=== PATIENT | female | born 1980 ===

== ENCOUNTER → 2017-07-04 | Outpatient (CLI) | payer OTHER ==
[2017-07-04 18:36] LABS: URINE APPEARANCE CLEAR (CLEAR); URINE BILIRUBIN NEG (NEG); URINE COLOR YELLOW; URINE NITRITE NEG (NEG); URINE PH >= 9.0 (4.5-7.5); URINE SPECIFIC GRAVITY 1.007 (1.000-1.030); UROBILINOGEN NEG (NEG)
[2017-07-04 18:43] LABS: MANUAL MICROSCOPIC REQUIRED? NO; REVIEW REQ? NO
[2017-07-04 18:48] LABS: BENZODIAZEPINE, URINE NEG (NEG); COCAINE,URINE NEG (NEG); PHENCYCLIDINE, URINE NEG (NEG)
== END | disposition home or self-care (01) ==
LOC: C.LABSPEC 17:25
PROVIDERS: ATTEND Obstetrics & Gynecology
DX: Z34.83 Encounter for supervision of other normal pregnancy, third trimester (principal)

== ENCOUNTER 2017-08-07 06:26 | Inpatient (IN) | payer OTHER ==
[~2017-08-07] VITALS: Ht 172.7 cm; Wt 70.8 kg
[2017-08-07] MEDS ORDERED: VNTHFA/IN INH (06:57)
[2017-08-07] MEDS ORDERED: PRENTAB26 PO (06:57)
[2017-08-07 06:59] VITALS: Ht 172.7 cm; Wt 70.8 kg
[2017-08-07] MEDS ORDERED: LACTATED RINGER'S 1000ML 1,000 ML IV SCH (08:01)
[2017-08-07] MEDS ORDERED: LACTATED RINGER'S 1000ML 500 ML IV PRN ×2 (08:01→09:59)
[2017-08-07] MEDS ORDERED: LACTATED RINGER'S 1000ML 1,000 ML IV PRN (08:01)
[2017-08-07] MEDS ORDERED: OXYTOCIN 30 UNITS/500ML NSS IV PRN ×2 (08:15→14:45)
[2017-08-07 08:26] LABS: BENZODIAZEPINE, URINE NEG (NEG); COCAINE,URINE NEG (NEG); PHENCYCLIDINE, URINE NEG (NEG)
[2017-08-07] MEDS ORDERED: FENTANYL 2MCG/ML ROPIV 1.25MG/ML 100ML BAG EPI ONE (08:47)
[2017-08-07] MEDS ORDERED: BUPIVACAINE 0.25% 30 ML VIAL ONE (08:47)
[2017-08-07] MEDS ORDERED: EpHEDrine SULFATE INJ 50 MG/ML AMP ONE (08:47)
[2017-08-07] MEDS ORDERED: FENTANYL CITRATE INJ 50 MCG/1 ML 2 ML VIAL ONE (08:47)
[2017-08-07 09:01] LABS: HEMATOCRIT 35.9 % (37-47); MEAN CELL VOLUME 100.6 fL (80-100); MEAN CORPUSCULAR HEMOGLOBIN 33.9 pg (25-34); MEAN CORPUSCULAR HGB CONC 33.7 g/dl (32-36); MEAN PLATELET VOLUME 12.8 fL (7.4-10.4); PLATELET COUNT 326 K/uL (130-400); RED BLOOD COUNT 3.57 M/uL (4.2-5.4); WHITE BLOOD COUNT 15.11 K/uL (4.8-10.8)
[2017-08-07] MEDS ORDERED: NALOXONE HCL INJ 1 MG in SODIUM CHLORIDE 0.9% 1000ML 1,000 ML IV PRN ×4 (09:59)
[2017-08-07] MEDS ORDERED: NALBUPHINE HCL INJ 10 MG/ML AMP IV PRN (10:00)
[2017-08-07] MEDS ORDERED: FENTANYL 2MCG/ML ROPIV 1.25MG/ML 100ML BAG EPI PRN (10:00)
[2017-08-07] MEDS ORDERED: EpHEDrine SULFATE INJ 50 MG/ML AMP IV PRN (10:00)
[2017-08-07] MEDS ORDERED: PROMETHAZINE HCL INJ 25 MG in SODIUM CHLORIDE 0.9% 50ML 50 ML IV PRN (10:00)
[2017-08-07] MEDS ORDERED: ONDANSETRON INJ 2 MG/ML 2 ML VIAL IV PRN (10:00)
[2017-08-07] MEDS ORDERED: DiphenhydrAMINE HCL 50 MG/ML VIAL IV PRN (10:00)
[2017-08-07] MEDS ORDERED: NALOXONE HCL INJ 0.4 MG/1 ML VIAL/CARP IV PRN (10:00)
[2017-08-07] MEDS ORDERED: LANOLIN OINT EXT PRN ×2 (14:45)
[2017-08-07] MEDS ORDERED: OXYCODONE/ACETAMINOPHEN 5-325 TAB PO PRN (14:45)
[2017-08-07] MEDS ORDERED: ACETAMINOPHEN/CODEINE 300/30MG TAB PO PRN ×2 (14:45)
[2017-08-07] MEDS ORDERED: HYDROCORTISONE ACETATE 25 MG SUPP PR PRN (14:45)
[2017-08-07] MEDS ORDERED: BENZOCAINE 20% AER SPR 82.5 GM CAN EXT PRN (14:45)
[2017-08-07] MEDS ORDERED: ACETAMINOPHEN 325 MG TAB PO PRN (14:45)
[2017-08-07] MEDS ORDERED: SUPERCREAM 0.870 % 15GM JAR EXT PRN (14:45)
--- NOTE | 2017-08-07 15:16 | DELIVERY SUMMARY ---
DATE OF OPERATION: 08/07/2017 DESCRIPTION OF LABOR AND DELIVERY: Maria Dolores presented in labor and delivery for Dr. Biggs. She arrived and changed her cervix to 4 cm per her exam. She was admitted. At that time, AROM was performed with minimal fluid obtained vaginally and the patient also required Pitocin augmentation. complicated by drug use and she was also a late transfer of care from her prior practice. heart rate was category 1. She progressed to fully dilated and then delivered a baby over a first degree tear and left occiput anterior. Mouth and nares suctioned. No nuchal cord. Fluid was clear. No excessive force used. Gentle traction. Live vigorous male infant. Cord clamped and cut. Cord gases obtained. Cord blood obtained. Placenta removed with gentle traction and then first degree tear repaired with 3-0 Vicryl. IV Pitocin started. Sponge and instrument counts correct. Estimated blood loss 300 mL. I attest to the content of the Intraoperative Record and any orders documented therein. Any exception s are noted below.
--- NOTE | 2017-08-07 15:17 | Anesthesia Procedure Note ---
Anesthesia Epidural Removal Nt Date & Time Aug 07, 2017 at 15:17 Vital Signs Pain Intensity: 0.0 Notes Mental Status: alert / awake / arousable, participated in evaluation Nausea / Vomiting: adequately controlled Pain: adequately controlled Airway Patency, RR, SpO2: stable & adequate BP & HR: stable & adequate Hydration State: stable & adequate Neuraxial Anesthesia: was administered Anesthetic Complications: no major complications apparent, pt satisfied with anesthetic care Epidural: removed without complications, with tip intact
[2017-08-07 16:55] VITALS: BP 143/91; PULSE 109; TEMP 36.9; O2SAT 92; O2SAT 95
[2017-08-07] MEDS: IBUPROFEN 600 MG TAB PO PRN ×2 (17:18→23:39)
[2017-08-07] MEDS ORDERED: NURSING VERBAL MED ORDER ONE (19:30)
[2017-08-07] MEDS: DOCUSATE SODIUM 100 MG CAP PO SCH (19:30)
[2017-08-07 19:45] VITALS: BP 154/93; PULSE 92; TEMP 36.6; O2SAT 94
[2017-08-07] MEDS: NICOTINE 21 MG/24 HR TDSY EXT SCH (20:50)
[2017-08-07 22:10] VITALS: BP 155/95; PULSE 93; O2SAT 94
[2017-08-07 23:40] VITALS: BP 148/85; PULSE 90; TEMP 36.6; O2SAT 94
[2017-08-08] VITALS (13 sets, daily range): BP systolic 112–161; BP diastolic 77–98; PULSE 84–110; TEMP 36.5–36.9; O2SAT 91–96
[2017-08-08 06:51] LABS: HEMATOCRIT 32.8 % (37-47)
--- NOTE | 2017-08-08 07:33 | Progress Note ---
Subjective Aug 08, 2017. Subjective conversation w/ patient, physical exam, chart review, lab review Ambulation: ambulating normally Voiding: no voiding problems Diet Tolerance: NPO (pt undergoing tubal today) Lochia: Moderate Feeding Type: Breast Feeding Pain: controlled Review of Systems Respiratory: No shortness of breath Cardiac: No chest pain Abdomen: No nausea, No vomiting Female : No dysuria Objective Vital Signs Date Time Temp Pulse Resp B/P (MAP) Pulse Ox O2 Delivery O2 Flow Rate FiO2 08/08/17 04:05 36.6 92 18 147/96 (113) 93 Room Air 08/07/17 23:40 36.6 90 18 148/85 (106) 94 Room Air 08/07/17 23:40 94 Room Air 08/07/17 22:10 93 155/95 (115) 94 08/07/17 19:45 36.6 92 20 154/93 (113) 94 Room Air 08/07/17 16:55 95 Room Air 08/07/17 16:55 36.9 109 20 143/91 (108) 92 Room Air Physical Exam General Appearance: WELL-APPEARING, WD/WN, NO APPARENT DISTRESS Respiratory/Chest: lungs clear, normal breath sounds, no respiratory distress Cardiovascular: regular rate, rhythm, no gallop Abdomen: normal bowel sounds, soft Fundus: Firm, Tender (appropriately tender), Relation to Umbilicus (1 below U) Extremities: non-tender, normal inspection Laboratory Results Last 24 Hours Test 08/07/17 08:28 08/08/17 06:29 White Blood Count 15.11 K/uL Red Blood Count 3.57 M/uL Hemoglobin 12.1 g/dL 10.7 g/dL Hematocrit 35.9 % 32.8 % Mean Corpuscular Volume 100.6 fL Mean Corpuscular Hemoglobin 33.9 pg Mean Corpuscular Hemoglobin Concent 33.7 g/dl RDW Standard Deviation 53.5 fL RDW Coefficient of Variation 14.6 % Platelet Count 326 K/uL Mean Platelet Volume 12.8 fL Nucleated RBC Absolute Count (auto) 0.08 K/uL Nucleated Red Blood Cells % 0.5 % Assessment and Plan Post- Day#: 1 Continue Routine Care: Vital signs reviewed and wnl with the exception of hypertension (147/96). Hgb reviewed 12.1, (10.7 today). Blood type O +, GBS -, RI. Pt doing well clinically. Pt denies headaches or change in vision. Encourage ambulation, . Resume regular diet. Control pain with motrin/tylenol. Monitor lochia. Continue routine post care. Pt to undergo tubal today. LY DUMONT FMR PGY 1. Resident Physician Supervision Note: I interviewed and examined the patient. Discussed with Dr. Dumont and agree with findings and plan as documented in the note. Any exceptions or clarifications are listed here: [None] Documented By: Gonzalez Hopper Resident Tracking Resident Involvement: Resident Care Provided Care Provided: OB Delivery
--- NOTE | 2017-08-08 07:38 | HISTORY & PHYSICAL EXAMINATION ---
DATE OF ADMISSION: 08/07/2017 HISTORY OF PRESENT ILLNESS: Maria Dolores anneented in labor and delivery in active labor at 40 weeks and 6 days on 08/07/2017 and delivered a baby vaginally without difficulty. Her was complicated by some marijuana use. The patient was also a late transfer of care with us. She had signed a consent for tubal ligation which she wished after delivery the day after, and discussed the case with Dr. Morales and he agreed to do this. PAST MEDICAL HISTORY: As mentioned drug use, otherwise healthy. MEDICATIONS: None. DRUG ALLERGIES: None. PAST SURGICAL HISTORY: No major surgeries. SOCIAL HISTORY: Noncontributory. FAMILY HISTORY: Noncontributory. REVIEW OF SYSTEMS: Negative. PHYSICAL EXAMINATION: VITAL SIGNS: Stable. She is afebrile. CHEST: Clear. CARDIOVASCULAR: Normal rate and rhythm. No audible murmur. ABDOMEN: Benign. Her uterus is below umbilicus at this stage, firm, nontender, bleeding is minimal. EXTREMITIES: Negative. IMPRESSION AND PLAN: The patient wishes a tubal ligation. I did review risks with her including risks of bleeding, infection, injury to bowel, bladder, ureter, vessels, deep vein thrombosis, pulmonary embolus, hernia and failure of the procedure. Also, discussed regret and patient consented for a laparoscopic tubal ligation with Dr. Morales on 08/08/2017.
[2017-08-08] MEDS: PRENATAL VITAMIN TAB PO SCH (08:00)
[2017-08-08] MEDS: DOCUSATE SODIUM 100 MG CAP PO SCH ×2 (08:00→19:54)
[2017-08-08] MEDS ORDERED: DIPHTHERIA/TETANUS/PERTUSSIS 0.5 ML SYR/VIAL IM. ONE (09:00)
[2017-08-08] MEDS ORDERED: PROPOFOL IV EMULSION 10 MG/ML 20 ML VIAL IV ONE ×2 (11:34→12:59)
[2017-08-08] MEDS ORDERED: MIDAZOLAM HCL 1 MG/ML 2ML VIAL ONE (11:34)
[2017-08-08] MEDS ORDERED: LIDOCAINE HCL 2% 2 ML VIAL (20MG/ML) ONE (11:34)
[2017-08-08] MEDS ORDERED: DEXAMETHASONE SOD INJ 4 MG/ML VIAL ONE (11:34)
[2017-08-08] MEDS ORDERED: ONDANSETRON INJ 2 MG/ML 2 ML VIAL ONE (11:34)
[2017-08-08] MEDS ORDERED: FENTANYL CITRATE INJ 50 MCG/1 ML 2 ML VIAL ONE ×2 (11:34→12:14)
[2017-08-08] MEDS ORDERED: KETAMINE HCL INJ 50 MG/ML 10 ML VIAL ONE (12:15)
[2017-08-08] MEDS ORDERED: SODIUM CHLORIDE 0.9% 1000ML 1,000 ML IV SCH (12:32)
--- NOTE | 2017-08-08 12:36 | [facility] Post Operative Brief Note ---
Immediate Operative Summary Operative Date Aug 08, 2017. Pre-Operative Diagnosis Request for Permanent Sterilization Post-Operative Diagnosis Same as preoperative Procedure(s) Performed Bilateral Tubal Ligation Surgeon Dr. Morales Belt Weaver Surgeon(s) Dr. Dumont Estimated Blood Loss 3ml Findings Apparent previous right partial salpingectomy, distal end of tube not seen on Right, Normal left tube, bilateral tubal ligation Fluids (cc crystalloids) 800 Specimens PERMANENT: A.) Right Fallopian Tube B.) Left Fallopian Tube Drains None Anesthesia General Disposition Recovery Room / PACU
[2017-08-08] MEDS ORDERED: ONDANSETRON INJ 2 MG/ML 2 ML VIAL IV PRN ×2 (12:45)
[2017-08-08] MEDS ORDERED: EpHEDrine SULFATE INJ 50 MG/ML AMP IV PRN (12:45)
[2017-08-08] MEDS ORDERED: FLUMAZENIL 0.1 MG/1 ML 10 ML VIAL IV PRN (12:45)
[2017-08-08] MEDS ORDERED: NALOXONE HCL 0.4 MG/1 ML VIAL/CARP IV PRN (12:45)
[2017-08-08] MEDS ORDERED: HYDROmorphone INJ 1 MG/ML SYR IV PRN (12:45)
[2017-08-08] MEDS ORDERED: ATROPINE SULFATE 0.1 MG/ML 5ML SYR IV PRN (12:45)
[2017-08-08] MEDS ORDERED: PROMETHAZINE HCL INJ 12.5 MG in SODIUM CHLORIDE 0.9% 50ML 50 ML IV PRN (12:45)
--- NOTE | 2017-08-08 12:54 | OPERATIVE REPORT ---
DATE OF OPERATION: 08/08/2017 PREOPERATIVE DIAGNOSIS: Desired permanent surgical sterilization. POSTOPERATIVE DIAGNOSIS: Same. PROCEDURE PERFORMED: tubal ligation. SURGEON: Dr. Morales. CORPORATE COMPLIANCE MANAGER: Dr. Dumont. ANESTHESIA: General. FINDINGS: Exploration of the abdomen showed a normal-appearing left tube followed to the fimbriated end. The right fallopian tube could only be followed one-half way with adhesions of the small bowel to the proximal tube. Adhesiolysis performed. Tube could not be followed to the end, but a segment of the fallopian tube was elevated and excised. PROCEDURE IN DETAIL: The patient was taken to the operating room and after general anesthesia, was placed in dorsolithotomy position and draped and prepped in the usual fashion. A subumbilical incision through previous surgical scar was made. Underlying subcutaneous tissue was dissected down to the ventral abdominal fascia, which was nicked and opened in a horizontal manner. The peritoneal cavity was entered. The right fallopian tube was isolated and an attempt to following the tube to the distal end was made. Approximately retirement distal, the tube could no longer be found. There were adhesions of the small bowel to that tube, which were taken down with sharp dissection. A segment of the right tube though was elevated, doubly ligated with 0 plain suture, cut and removed from the field. In the similar fashion, left fallopian tube was isolated, followed to the fimbriated end; a segment of which was elevated, doubly ligated with 0 plain suture, cut and removed from the field. Hemostasis was present. Sponge and needle count was correct. The fascia was closed with a running 0 Vicryl suture. The skin incision was closed with interrupted 5-0 Monocryl sutures. Sterile dressing was applied and the patient was taken to the recovery room in satisfactory condition. I attest to the content of the Intraoperative Record and any orders documented therein. Any exception s are noted below.
[2017-08-08] MEDS ORDERED: OXYC-57 PO (13:43)
--- NOTE | 2017-08-08 13:44 | Anesthesiology Progress Note ---
Anesthesia Post Op Note Date & Time Aug 08, 2017 at 13:43 Vital Signs Pain Intensity: 1 Vital Signs Past 12 Hours Date Time Temp Pulse Resp B/P (MAP) Pulse Ox O2 Delivery O2 Flow Rate FiO2 08/08/17 12:50 36.5 99 16 132/89 94 Mask 10 08/08/17 11:20 36.5 90 16 161/98 (119) Room Air 08/08/17 08:00 36.7 84 18 125/84 (98) Room Air 08/08/17 07:20 Room Air 08/08/17 04:05 36.6 92 18 147/96 (113) 93 Room Air Notes Mental Status: alert / awake / arousable, participated in evaluation Pt Amnestic to Procedure: Yes Nausea / Vomiting: adequately controlled Pain: adequately controlled Airway Patency, RR, SpO2: stable & adequate BP & HR: stable & adequate Hydration State: stable & adequate Anesthetic Complications: no major complications apparent
[2017-08-08] MEDS: IBUPROFEN 600 MG TAB PO PRN ×2 (15:28→19:51)
[2017-08-08] MEDS: OXYCODONE/ACETAMINOPHEN 5-325 TAB PO PRN ×3 (15:28→21:31)
--- NOTE | 2017-08-08 16:47 | Discharge Instructions ---
Discharge Instructions Date of Service Aug 08, 2017. Admission Reason for Admission: Normal Labor And Delivery Discharge Discharge Diagnosis / Problem: Spontaneous vaginal delivery Discharge Goals Goal(s): Routine recovery after delivery Medications Continue Dispensed Medications: supercream, dermaplast, tucks, lansinoh Activity Recommendations Activity Limitations: per Instructions/Follow-up section . Instructions / Follow-Up Instructions / Follow-Up ACTIVITY RECOMMENDATIONS: * Gradual return to full activity over the next 2-3 weeks. * No lifting - nothing heavier than baby over the next 2-3 weeks. * Do not engage in vigorous exercise, sexual activity or sports until cleared by your physician. * Do not drive or operate any motorized equipment until cleared by your physician. * You may shower/bathe daily. MEDICATIONS: For discomfort or pain, you may use Acetaminophen (Tylenol), Ibuprofen (Advil), or Naproxen (Aleve) following the package directions. For constipation you may use Colace following the package directions. BREAST CARE: If you are not breast feeding: * Wear a supportive bra 24 hours a day for one to two weeks. * Avoid stimulating your breasts and nipples as much as possible during the first few weeks after delivery. * When taking a shower, have the warm water hit your back, not breasts. * When your breasts feel full, apply ice packs. Usually three to four times a day helps ease the discomfort. * Take a mild pain medication (Tylenol / Motrin) when you are uncomfortable. If breast feeding: * Use breast milk to lubricate nipples. Lansinoh cream may be used for sore nipples. You do not need to remove cream prior to breast feeding. If using a different brand of cream, check the label for directions regarding removal of cream prior to nursing. * Wear a supportive bra. * If having problems with breasts or breast feeding, call a senior microsoft consultant or your health care provider. EPISIOTOMY CARE: After delivery, if you have an episiotomy (stitches), the following steps will ease discomfort and aid healing. * For the first 24 hours after delivery, place ice packs next to your episiotomy to help reduce swelling. * After the first 24 hour-period, sitz baths, either portable or in the tub, are suggested. A shower with a shower arm sprayed over the episiotomy may be comforting. * [place] care should be done after each voiding and bowel movement. Squirt warm water from a plastic bottle over the perineum (region of the body between the anus and urinary opening) and pat dry. * Use Dermoplast to ease discomfort. Shake container. [place] directly over the episiotomy. Place a Tucks on a clean sanitary pad next to your episiotomy. SPECIAL CARE INSTRUCTIONS: When you are discharged from the hospital, it is important for you to follow the instructions listed below: * During the first week at home, you should be able to care for yourself and your baby. In addition, the usual light household activities are encouraged. * Limit your activities to the way you feel. Do not try to clean the house or move furniture. Be sensible. * If you actively engage in sports and have done so up until the time of your delivery, you may resume these activities as soon as you feel able. This may take up to one month or even longer. Use good judgment. * Continue to take your vitamins for at least six weeks after the of your baby. * Your diet need not be limited unless you were on a special diet before your delivery. Breast-feeding mothers need around 2500 calories per day and at least 64-80 ounces of fluid per day (8 to 10 glasses). * You should eat foods from the four major food groups. Crash diets or fad diets are to be avoided. Eating lean meats, fresh fruits and vegetables, low-fat dairy products, high fiber foods and a regular exercise program, will help you get back to your pre- weight without putting your health at risk. * Constipation is sometimes a problem after delivery. Take a mild laxative as needed. If breast feeding, Milk of Magnesia is acceptable to use. You may use a suppository or Fleets enema if no episiotomy. * A daily shower or tub bath is suggested. Be sure to thoroughly and gently dry the perineum. * A bloody vaginal discharge will usually continue until around four weeks post . A small amount of bleeding may continue for as long as six weeks. Vaginal discharge changes from the bright red bleeding after delivery to pink then brownish and finally yellowish-pink before becoming white and disappearing. * Bleeding may increase with activity. Your first period may come in 4-8 weeks. If you are breast feeding, your period may be delayed even longer. * [place] (sex) can begin whenever both you and your partner feel comfortable and do not have any form of genital infection. It is recommended that you wait at least six weeks for internal and external healing to occur. If you have questions, please talk to your health care practitioner. A condom should be used to prevent infection and . * Foreplay, gentle intercourse and lubrication is very important the first several times to prevent pain. A water-based lubricant such as K-Y jelly or Astroglide may be used. * If you have RH negative blood and your baby is RH positive, you will receive RHOGAM by injection prior to discharge. The nurse will give you a card to keep with you that has the date and place that you received RHOGAM after delivery. * During your care, you had a Rubella screen done to check for the presence of rubella antibodies in your blood. If your test was negative, you will receive a Rubella vaccine prior to discharge. This vaccine may cause a fever, soreness at the injection site and flu-like symptoms. If these symptoms persist, notify your health care practitioner. is not advised for one month after a Rubella vaccine. * Verbalizes understanding of car seat law as reviewed with patient nursing. * Car Seat hand-out given and reviewed with patient by nursing. * Shaken baby information reviewed with patient by nursing. Call you doctor if: * Heavy bleeding (saturating several pads an hour) or passing clots the size of your fist. * A fever >101 degrees F (38.3 degrees C) on two occasions four hours apart and /or chills. * Unusual pain in the pelvic or vaginal areas. * "Baby Blues" lasting longer than two weeks. If you have any questions or concerns, call your health care practitioner at . FOLLOW UP VISIT: * Please call the office at to schedule a 6 week examination. It is important you keep this appointment. It is important for you to make arrangements for either yearly or twice yearly check-ups thereafter. Current Hospital Diet Patient's current hospital diet: Regular OB Diet Discharge Diet Recommended Diet: Regular Diet Procedures Procedures Performed: Bilateral Tubal Ligation Pending Studies Studies pending at discharge: no Medical Emergencies . Who to Call and When: Medical Emergencies: If at any time you feel your situation is an emergency, please call 911 immediately. . Non-Emergent Contact Non-Emergency issues call your: Primary Care Provider . . "Provider Documentation" section prepared by Whitley Dumont. . VTE Core Measure Inpt VTE Proph given/why not?: Treatment not indicated
[2017-08-08] MEDS: NICOTINE 21 MG/24 HR TDSY EXT SCH (19:56)
[2017-08-08] MEDS ORDERED: BISACODYL 5 MG TABEC PO SCH (20:00)
[2017-08-09] MEDS: IBUPROFEN 600 MG TAB PO PRN ×2 (00:48→04:52)
[2017-08-09] MEDS: OXYCODONE/ACETAMINOPHEN 5-325 TAB PO PRN ×2 (00:49→04:52)
[2017-08-09 02:06] VITALS: BP 124/85; PULSE 102; TEMP 36.6; O2SAT 95
[2017-08-09] MEDS ORDERED: NURSING VERBAL MED ORDER ONE (02:15)
[2017-08-09] MEDS ORDERED: KETOROLAC TROMETHAMINE 30 MG/ML VIAL IV. STA (02:19)
[2017-08-09] MEDS ORDERED: BISACODYL 10 MG SUPP PR PRN (07:00)
[2017-08-09 07:29] LABS: HEMATOCRIT 22.5 % (37-47); MEAN CELL VOLUME 99.6 fL (80-100); MEAN CORPUSCULAR HEMOGLOBIN 34.5 pg (25-34); MEAN CORPUSCULAR HGB CONC 34.7 g/dl (32-36); MEAN PLATELET VOLUME 11.9 fL (7.4-10.4); PLATELET COUNT 268 K/uL (130-400); RED BLOOD COUNT 2.26 M/uL (4.2-5.4); WHITE BLOOD COUNT 28.17 K/uL (4.8-10.8)
--- NOTE | 2017-08-09 07:40 | Progress Note ---
Subjective Aug 09, 2017. Subjective conversation w/ patient (c/o bilateral shoulder pain, feels like gas pains from other surgeries), physical exam, chart review, lab review Ambulation: ambulating normally Voiding: no voiding problems Passing Gas: No Diet Tolerance: Regular Diet Lochia: Moderate Feeding Type: Breast Feeding Pain: complains of gas pain Review of Systems Respiratory: No shortness of breath Cardiac: No chest pain Abdomen: No nausea, No vomiting Female : No dysuria Objective Vital Signs Date Time Temp Pulse Resp B/P (MAP) Pulse Ox O2 Delivery O2 Flow Rate FiO2 08/09/17 02:06 36.6 102 18 124/85 (98) 95 Room Air 08/08/17 22:55 95 Room Air 08/08/17 22:55 36.9 95 18 112/77 (89) 95 Room Air 08/08/17 21:05 36.6 110 18 126/80 (95) Room Air 08/08/17 19:10 93 Room Air 08/08/17 18:30 91 Room Air 08/08/17 16:55 93 19 154/94 (114) 94 Nasal Cannula 1.0 08/08/17 16:30 93 Nasal Cannula 1.0 08/08/17 16:00 36.8 86 20 139/91 (107) 96 Nasal Cannula 3.0 08/08/17 15:40 94 18 139/89 (106) 96 Nasal Cannula 3.0 08/08/17 15:40 Nasal Cannula 3.0 08/08/17 14:50 36.7 84 16 149/95 (113) 94 Nasal Cannula 3.0 08/08/17 13:55 36.5 84 16 146/96 (113) 92 Nasal Cannula 3.0 08/08/17 13:41 36.5 142/85 08/08/17 13:40 84 15 08/08/17 13:40 84 15 91 08/08/17 13:36 142/75 08/08/17 13:35 78 14 91 08/08/17 13:35 79 14 08/08/17 13:31 139/99 08/08/17 13:30 82 15 08/08/17 13:30 81 15 92 08/08/17 13:26 132/98 08/08/17 13:25 89 14 08/08/17 13:25 89 14 91 08/08/17 13:21 134/96 08/08/17 13:20 90 20 08/08/17 13:20 93 20 92 08/08/17 13:16 125/90 08/08/17 13:15 85 15 94 08/08/17 13:15 84 15 08/08/17 13:11 132/95 08/08/17 13:10 87 15 94 08/08/17 13:10 86 15 08/08/17 13:06 130/92 08/08/17 13:05 91 19 95 08/08/17 13:05 91 19 08/08/17 13:01 127/94 08/08/17 13:00 94 19 94 08/08/17 13:00 94 19 08/08/17 12:56 123/92 08/08/17 12:55 101 18 92 08/08/17 12:55 101 18 08/08/17 12:51 119/84 08/08/17 12:50 36.5 99 16 132/89 94 Mask 10 08/08/17 12:50 102 24 91 08/08/17 12:50 103 24 08/08/17 11:20 36.5 90 16 161/98 (119) Room Air 08/08/17 08:00 36.7 84 18 125/84 (98) Room Air Physical Exam General Appearance: WELL-APPEARING, WD/WN, NO APPARENT DISTRESS Respiratory/Chest: lungs clear, normal breath sounds, no respiratory distress Cardiovascular: regular rate, rhythm Abdomen: normal bowel sounds, soft, + distended Fundus: Firm (pt refused thorough abdominal exam) Incision Description: Clean, Dry & Intact (open tubal ligation incision at umbilicus appears in tact) Extremities: non-tender, normal inspection, + pertinent finding (generalized shoulder tenderness, normal range of motion) Laboratory Results Last 24 Hours Test 08/09/17 06:43 White Blood Count 28.17 K/uL Red Blood Count 2.26 M/uL Hemoglobin 7.8 g/dL Hematocrit 22.5 % Mean Corpuscular Volume 99.6 fL Mean Corpuscular Hemoglobin 34.5 pg Mean Corpuscular Hemoglobin Concent 34.7 g/dl RDW Standard Deviation 52.6 fL RDW Coefficient of Variation 14.7 % Platelet Count 268 K/uL Mean Platelet Volume 11.9 fL Assessment and Plan Post- Day#: 2 Continue Routine Care: Vital signs reviewed and wnl. Hgb reviewed 12.1, 10.7, 7.8 today. Blood type O +, GBS -, RI. Pt doing well clinically - complains of gas pain in abdomen, requesting toradol. Encourage ambulation, . Resume regular diet. Control pain with motrin/tylenol. Monitor lochia. Continue routine post care. Pt counselled on discharge, ordered toradol inj x 1 and simethicone chew tabs scheduled. LY DUMONT FMR PGY 1. Resident Physician Supervision Note: I interviewed and examined the patient. Discussed with Dr. Dumont and agree with findings and plan as documented in the note. Any exceptions or clarifications are listed here: No obvious etiology for shoulder pain, no gas used during surgery. Abdomen distended but no N/V and normal BS. Will give gas pill and toradol. Pt desires d/c, instructions given, f/u in 6 weeks Documented By: Haresh Morales Resident Tracking Resident Involvement: Resident Care Provided Care Provided: OB Delivery
[2017-08-09] MEDS ORDERED: MYL80 PO (07:43)
[2017-08-09] MEDS ORDERED: KETOROLAC TROMETHAMINE 30 MG/ML VIAL IV ONE (07:45)
[2017-08-09 07:59] VITALS: BP 128/78; PULSE 97; TEMP 36.7
[2017-08-09] MEDS ORDERED: SIMETHICONE 80 MG CHEW PO SCH (08:00)
[2017-08-09] MEDS: DOCUSATE SODIUM 100 MG CAP PO SCH (08:37)
[2017-08-09] MEDS: PRENATAL VITAMIN TAB PO SCH (08:37)
[2017-08-09] MEDS ORDERED: BISACODYL 5 MG TABEC PO PRN (10:45)
[2017-08-09] MEDS ORDERED: MAGNESIUM HYDROXIDE SUSP 30 ML UDC PO PRN (10:45)
[2017-08-09] MEDS ORDERED: OXYCODONE/ACETAMINOPHEN 5-325 TAB PO PRN (10:45)
[2017-08-09 11:05] VITALS: BP 147/87; PULSE 87; TEMP 36.7
[2017-08-09 12:57] LABS: HEMATOCRIT 25.8 % (37-47); MEAN CELL VOLUME 100.4 fL (80-100); MEAN CORPUSCULAR HEMOGLOBIN 34.2 pg (25-34); MEAN PLATELET VOLUME 11.7 fL (7.4-10.4); PLATELET COUNT 312 K/uL (130-400); RED BLOOD COUNT 2.57 M/uL (4.2-5.4); WHITE BLOOD COUNT 24.95 K/uL (4.8-10.8)
[2017-08-09 13:01] LABS: MEAN CORPUSCULAR HGB CONC 34.1 g/dl (32-36)
[2017-08-09 13:21] LABS: BASO % 0.6 %; BASO ABS # 0.16 K/uL (0-0.2); COMPLETE YES; EOS % 0.4 %; HOWELL-JOLLY BODIES 1+; IG% 0.5 %; LYMPH % 21.1 %; LYMPH ABS # 5.26 K/uL (1.2-3.4); MONO % 5.5 %; NEUT % 71.9 %
[2017-08-09 14:29] VITALS: BP_DIAS 87; PULSE 87; TEMP 36.7
== END 2017-08-09 14:05 | disposition home or self-care (01) | DRG 767 ==
LOC: C.OPB 06:26 → C.LD 06:27 → C.OPB 08:03 → C.OBG 16:59
PROVIDERS: ADMIT Obstetrics & Gynecology; ATTEND Obstetrics & Gynecology
PROC: 10E0XZZ Delivery of Products of Conception, External Approach (ICD-10-PCS; principal; 2017-08-07)
PROC: 0HQ9XZZ Repair Perineum Skin, External Approach (ICD-10-PCS; principal; 2017-08-07)
PROC: 0UL74ZZ Occlusion of Bilateral Fallopian Tubes, Percutaneous Endoscopic Approach (ICD-10-PCS; 2017-08-08)
DX: O70.0 First degree perineal laceration during delivery (principal); O99.324 Drug use complicating childbirth; Z3A.40 40 weeks gestation of pregnancy; Z37.0 Single live birth; F12.90 Cannabis use, unspecified, uncomplicated; Z30.2 Encounter for sterilization